=== PATIENT | male | born 1975 | race Caucasian/White ===

== ENCOUNTER → 2016-09-17 | Outpatient (CLI) | payer MEDICARE, MEDICAID ==
--- NOTE | ~2016-09-17 | ECH ---
Transthoracic Echocardiography Report (TTE) Demographics Patient Name TIN LARES Date of Study 09/17/2016 Patient Number [id number] Visit Number [id number] Date of 1975 Room Number Accession Number [id number] Gender Male Age 40 year(s) Referring King Dudley Mitchell MD Software Clerk Chari Krishnan Physician Jesus Aragon MD RD Physician Interpreting Mary Loja MD Agricultural Agent Physician Supervising Ordering Physician King Dudley Mitchell MD, MD/P Nurse Stress Deputy General Counsel Conclusions Contractility Score Summary Global Left Ventricular Hypokinesis was noted. Summary Technically adequate exam. The estimated left ventricular ejection fraction is 30-35%. The left ventricle is mildly dilated. Diastolic assessment reveals Grade I diastolic dysfunction. Mildly dilated right ventricle with reduced function. There is trivial aortic regurgitation by color Doppler. The ascending aorta appears mildly dilated. The maximum diameter measures 3.7 cm. Procedure Type of Study TTE procedure:Echo Complete SF. Procedure Date Date: 09/17/2016 Start: 12:56 PM Technical Quality: Adequate visualization Indications:Ischemic Cardiomyopathy, Chest pain, Hypertension, Diabetes and History of CABG. Additional Indications:History of stent Appropriate Use Criteria: 9 Height: 65 inches Weight: 231 pounds BSA: 2.1 m Rhythm: NSR HR: 70 bpm BP: 106/60 mmHg M-Mode/2D Measurements LV Diastolic Dimension: 6.18 cm LV Systolic Dimension: 5.22 cm LV Septum Diastolic: 1 cm LV PW Diastolic: 1.07 cm AO Root Dimension: 3.6 cm Cardiac Output: 5.19 l/min LA Dimension: 3.6 cm Cardiac Index: 2.47 l/min*m RV Diastolic Dimension: 2.88 cm LA volume index: 23 ml/m LVOT: 2.4 cm LVOT VTI: 16.41 cm RV Base: 4.4 cm LV Stroke volume: 74.2 ml RV Mid: 3.3 cm LV Stroke volume index: 35.33 ml/m TAPSE: 1.3 cm TDI-S': 7 cm/s Doppler Measurements AV Peak Velocity: 1.1 m/s MV Peak E-Wave: 0.63 m/s AV Peak Gradient: 4.84 mmHg MV Peak A-Wave: 0.75 m/s AV Mean Gradient: 3.2 mmHg MV E/A Ratio: 0.83 LVOT Peak Velocity: 1.07 m/s MV P1/2t: 54.5 msec AV Area (Continuity):3.68 cm MV Deceleration Time: 182.3 msec TR Velocity:1.98 m/s MV Area (PHT): 4.04 cm TR Gradient:15.76 mmHg PV Peak Velocity: 0.72 m/s Estimated RAP:5 mmHg PV Peak Gradient: 2.09 mmHg Estimated RVSP: 21 mmHg Estimated PASP: 20.76 mmHg E' Septal Velocity: 0.05 m/s A' Septal Velocity: 0.08 m/s E' Lateral Velocity: 0.06 m/s A' Lateral Velocity: 0.1 m/s RA Area: 15.73 cm Findings Left Ventricle The left ventricle is mildly dilated. Diastolic assessment reveals Grade I diastolic dysfunction. Right Ventricle Mildly dilated right ventricle with reduced function. Left Atrium Normal left atrial size. Right Atrium Normal right atrial size. Mitral Valve Normal mitral valve structure and function. Trivial mitral regurgitation by color Doppler. Aortic Valve The aortic valve is mildly sclerotic. There is trivial aortic regurgitation by color Doppler. Tricuspid Valve Normal tricuspid valve structure and function. Trivial tricuspid regurgitation by color Doppler. Normal pulmonary pressures. Pulmonic Valve Normal pulmonic valve structure and function. Trivial pulmonic valve regurgitation by color Doppler. Pericardial Effusion No evidence of pericardial effusion. Miscellaneous The ascending aorta appears mildly dilated. The maximum diameter measures 3.7 cm. Suboptimal subcostal window to evaluate the IVC and interatrial septum. Pleural Effusion No evidence of pleural effusion. Contractility Score LV regional wall motion:(0-Non visualized 1-Normal 2-Hypokinesis 3-Akinesis 4-Dyskinesis 5-Aneurysm) Signature
== END | disposition home or self-care (01) ==
LOC: CARD 12:35
DX: I42.9 Cardiomyopathy, unspecified (principal); I51.7 Cardiomegaly; I51.89 Other ill-defined heart diseases

== ENCOUNTER 2016-10-23 10:42 | Day surgery (SDC) | payer MEDICARE, MEDICAID ==
[~2016-10-23] VITALS: Ht 165.1 cm; Wt 102.6 kg
--- NOTE | ~2016-10-23 | CATH ---
Cardiac Diagnostic Report Demographics Patient Name LUDA Ware Gender Male Date of 1975 Age 40 year(s) Patient Number [id number] Date of Study 10/23/2016 Visit Number [id number] Room Number Corporate ID Ht 165.1 cm Wt 105.23 kg Accession Number [id number] BSA 2.11 m kg/m Referring King Dudley Mitchell MD Primary Physician Physician Jesus Aragon MD Performing Abi LÓPEZ Secondary Physician Physician Andrey Diagnostic Abi LÓPEZ Assisting Physician Physician Andrey Interventional Abi LÓPEZ Physician Momd Teacher Physician Andrey Findings and Conclusions Diagnostic Findings and Conclusion Severe 3 vessel [place] artery disease. FIGUEROA to LAD graft and SVG to OM1 patent. SVG to RCA occluded. Diagnostic Recommendations Medical management -Will add Isosorbide. Refer to EP services for possible ICD placement. Follow up with [facility] provider in 7 days. Cardiac rehab referral. Procedure Description The patient was brought to the diagnostic cardiac catheterization laboratory in the fasting, non-sedated state. Informed consent was obtained in the written and verbal form after the risks and benefits were explained. The patient had no further questions and agreed to proceed. The planned puncture-incision site(s) were shaved and prepped with ChloraPrep and draped in the usual sterile manner. Conscious sedation, supplemental oxygen, and pain control medications were delivered by a registered nurse under physician guidance. Surface ECG rhythm, blood pressure measurement, and pulse oximetry were monitored throughout the procedure. Arterial access. The right femoral access site was infiltrated with lidocaine. The vessel was entered with the Seldinger technique. A 5 Fr sheath was advanced into the vessel and used for catheter placement. Selective left coronary angiography. A JL4 catheter was advanced into the left coronary vessel ostium under Fluoroscopic guidance. Contrast was injected by hand. Images were obtained in multiple projections. Selective right coronary angiography. A JR4 catheter was advanced into the right coronary vessel ostium under fluoroscopic guidance. Contrast was injected by hand. Images were obtained in multiple projections. Selective SVG to OM1 angiography. A JR4 catheter was advanced into the graft proximal anastomosis under fluoroscopic guidance. Contrast was injected by hand. Images were obtained in multiple projections. Selective FIGUEROA graft to LAD angiography. A PRC catheter was advanced into the left internal mammary graft ostium under fluoroscopic guidance. Contrast was injected by hand. Images were obtained in multiple projections. Left heart catheterization. A MPA1 catheter was advanced across the aortic valve to the left ventricle under fluoroscopic guidance. Resting hemodynamics were obtained. Selective SVG to RCA angiography. A MPA-1 catheter was advanced into the graft proximal anastomosis under fluoroscopic guidance. Contrast was injected by hand. Images were obtained in multiple projections. Arterial artery hemostasis. Hemostasis was achieved using manual pressure. The patient was transferred back to the Short Stay Surgery nursing department via cart accompanied by a labeling strategist nurse. The patient left the laboratory in stable condition. Procedure Procedure Type Diagnostic procedure:Angiography:, Coronary Angios w/LHC & Grafts Indications: Hypertension, Hyperlipidemia, Diabetes, Previous stent placement, History of CABG, Abnormal Stress Test, CAD, Chest pain and Shortness of breath. The procedure was explained in detail to the patient. Risks, complications and alternative treatments were reviewed. Written consent was obtained. Medications Reviewed with Patient prior to Procedure. Complications: No Complication. Angiographic Findings Dominance: Right Cardiac Arteries and Lesion Findings LMCA: Normal (0% Stenosis). LAD: Abnormal. Lesion on Prox LAD: 50% stenosis . Lesion on Mid LAD: 90% stenosis . Lesion on 1st Diag: Proximal subsection.40% stenosis . LCx: Abnormal. Lesion on Mid CX: 50% stenosis . Lesion on 1st Ob Allison% stenosis . RCA: Abnormal. Lesion on Prox RCA: Proximal subsection.90% stenosis . Lesion on Prox RCA: Distal subsection.100% stenosis . Graft Lesions Lesion on Aorta Right to Mid RCA: Proximal anastomosis.100% stenosis . Cardiac Grafts - There is a Vein graft that originates at the Aorta Right and attaches to the Mid RCA. - There is a Vein graft that originates at the Aorta Left and attaches to the 1st Ob Allison. - There is a FIGUEROA graft that originates at the FIGUEROA and attaches to the Mid LAD. Coronary Tree Procedure Data Procedure Date Date: 10/23/2016Start: 02:08 PMEnd: 02:58 PM Entry Locations - Percutaneous access was performed through the Right Femoral artery (Primary location). A 5 Fr sheath was inserted. Hemostasis was successfully obtained using Manual Compression. Procedure Medications Order and Administration + + + +-------+ !Time !Medication !Dosage !Route ! + + + +-------+ !10/23/2016 01:58 PM !Fentanyl !50 mcg !I.V. ! + + + +-------+ !10/23/2016 01:58 PM !Versed !2 mg !I.V. ! + + + +-------+ !10/23/2016 02:00 PM !Oxygen !2 l/min !NC ! + + + +-------+ !10/23/2016 02:02 PM !Fentanyl !25 mcg !I.V. ! + + + +-------+ !10/23/2016 02:02 PM !Versed !1 mg !I.V. ! + + + +-------+ !10/23/2016 02:10 PM !Versed !2 mg !I.V. ! + + + +-------+ !10/23/2016 02:23 PM !Fentanyl !50 mcg !I.V. ! + + + +-------+ !10/23/2016 02:06 PM !Fentanyl !25 mcg !I.V. ! + + + +-------+ !10/23/2016 02:06 PM !Versed !1 mg !I.V. ! + + + +-------+ Devices Used - [facility] 5FR MULTIPACK CATHETERSwas used for:Left coronary angiography. - AC[facility] 5FR MULTIPACK CATHETERSwas used for:SVG. - ACATH 5FR MULTIPACK CATHETERSwas used for:FIGUEROA.Unable to cannulate the vessel. - ACATH 5F PRC CATHETER 100CMwas used for:FIGUEROA. - A5F MPA1 CATHETER 100 CMwas used for:LV Pressures. - A5F MPA1 CATHETER 100 CMwas used for:SVG. Contrast Material - Isovue 26015 ml Fluoroscopy Time: Diagnostic: 8:24 minutes. Total: 8:24 minutes. Fluoroscopy Dose: Diagnostic: 1222 mGy. Total: 1222 mGy. Estimated Blood Loss: 10 ml. Medical History Performed Procedures and Imaging Results - Stress testing with SPECT MPIwas performed on 09/03/2016. Results were: Positive. Risk/Extent of ischemia was: Intermediate risk. Allergies - Penicillin. - Other:(ambien, crestor, lipitor, dilantin, livalo, linzess). - Other:(Ambien). - Other:(Crestor). - Other:(Dilantin). - Other:(lipitor). - Other:(Livalo). - Other:(Linzess). Risk Factors The patient risk factors include:prior PCI on 12/26/2010; prior CABG on 04/20/2015;treated hypercholesterolemia, treated hypertension, orally-treated diabetes mellitus, chronic lung disease, last creatinine: 1.3 mg/dl, creatinine clearance: 110.18 ml/min, dyslipidemia and Current/Recent(w/in 1 year) tobacco use. Admission Data Admission Date: 10/23/2016 Admission Time: 10:42 AM Insurance Payors: Medicare. Clinical Evaluation Leading to Procedure Diagnosed on 09/18/2016 12:00 AM. - The patient's CAD presentation was assessed as: Unstable angina. Hemodynamics Condition: Rest O2 Consumption: Estimated: 258.04Heart Rate: 73 bpm Pressures (mmHg) +-----+ + !Site !Pressure ! +-----+ + !AO !143/82 (109) ! +-----+ + !LV !120/0 ,14 ! +-----+ + !AO !143/92 (114) ! +-----+ + !LV !121/7 ,13 ! +-----+ + Valve Gradients and Areas + +---------+---------+---------+ +---------+ + !Valve !Peak !Mean !Area !Index !Flow !Source ! + +---------+---------+---------+ +---------+ + !Aortic !0 !0 ! ! ! ! ! + +---------+---------+---------+ +---------+ + !Aortic !0 !0 ! ! ! ! ! + +---------+---------+---------+ +---------+ + Shunts Oxygen Values O2 Consumption 258.04 Signatures
--- NOTE | 2016-10-24 10:06 | NUR ---
Received SAD person referral. Called and spoke with pt. States he tried to harm himself 8 years ago. States he is on andidepressent medication and he sees a counselor. Pt denies current thoughts of self harm. Deny any needs or concerns at this time.
== END 2016-10-23 17:52 | disposition home or self-care (01) ==
LOC: SSS 10:42
DX: I25.110 Atherosclerotic heart disease of native coronary artery with unstable angina pectoris (principal); I11.9 Hypertensive heart disease without heart failure; I25.5 Ischemic cardiomyopathy; E78.2 Mixed hyperlipidemia; F17.210 Nicotine dependence, cigarettes, uncomplicated; F41.9 Anxiety disorder, unspecified; J44.9 Chronic obstructive pulmonary disease, unspecified; K21.9 Gastro-esophageal reflux disease without esophagitis; F32.9 Major depressive disorder, single episode, unspecified; I25.2 Old myocardial infarction; Z88.0 Allergy status to penicillin; Z79.899 Other long term (current) drug therapy; Z79.82 Long term (current) use of aspirin; Z88.8 Allergy status to other drugs, medicaments and biological substances

== ENCOUNTER → 2016-11-29 | Outpatient (CLI) | payer MEDICARE, MEDICAID | END | disposition home or self-care (01) | LOC: RAD.S 08:43 | DX: N28.9 Disorder of kidney and ureter, unspecified (principal); N28.1 Cyst of kidney, acquired ==